=== PATIENT | female | born 1970 | race Two or more races ===

== ENCOUNTER 2022-10-14 09:24 | Outpatient (CLI) | payer BC, SELFPAY ==
--- NOTE | 2022-10-14 09:15 | CRLHL7_ITS ---
For Patients: As a result of the Century Cures Act, medical imaging exams and procedure reports are released immediately into your electronic medical record. You may view this report before your referring provider. If you have questions, please contact your health care provider. BILATERAL SCREENING MAMMOGRAM WITH COMPUTER-AIDED DETECTION TECHNIQUE: CC and MLO views were obtained. These mammographic images have been obtained using full-field digital technique. These mammographic images were interpreted with the benefit of computer-aided detection. COMPARISON FILM: 07/30/21, 05/15/20, 04/28/19. FINDINGS: The breasts are heterogeneously dense, which may obscure small masses IMPRESSION: There is no radiographic evidence for malignancy. ASSESSMENT: BI-RADS Category 2: Benign RECOMMENDATION: Routine screening mammogram in 1 year. A lay language report of this examination will be provided to the patient. Alejandro New M.D. Diagnostic Radiologist [email or web address] SOPHIA/melanie / be/Dictated by: Alejandro New MD @ 10/14/2022 11:47:00 AM (Electronically Signed)
== END 2022-10-14 09:25 | disposition home or self-care (01) ==
LOC: MAMMO 09:25
PROVIDERS: PCP Family Medicine; Visit Provider Physician Assistant
DX: Z12.31 Encounter for screening mammogram for malignant neoplasm of breast (principal); R92.2 Inconclusive mammogram
CPT/HCPCS: 77067

== ENCOUNTER 2023-09-24 07:55 | Outpatient (CLI) | payer MEDICAID, SELFPAY ==
--- NOTE | 2023-09-24 09:44 | W.ANESCHARGE ---
Anesthesia Charges Start Date/Time Anesthesia Start Date: 09/24/23 Anesthesia Start Time: 09:10 Stop Date/Time Anesthesia Stop Date: 09/24/23 Anesthesia Stop Time: 09:39
== END 2023-09-24 07:56 | disposition home or self-care (01) ==
PROVIDERS: PCP Physician Assistant Medical; Visit Provider Internal Medicine
DX: Z12.11 Encounter for screening for malignant neoplasm of colon (principal); K63.5 Polyp of colon; K57.30 Diverticulosis of large intestine without perforation or abscess without bleeding
CPT/HCPCS: 00811; 45380; 88305; J2704

== ENCOUNTER 2023-10-13 13:00 | Outpatient (RCR) | payer OTHER, BC, SELFPAY ==
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
== END 2023-10-19 10:59 | disposition home or self-care (01) ==
PROVIDERS: PCP Physician Assistant Medical; Visit Provider Family Medicine
DX: M25.511 Pain in right shoulder (principal); M89.8X1 Other specified disorders of bone, shoulder; R29.898 Other symptoms and signs involving the musculoskeletal system; Z74.09 Other reduced mobility; Z51.89 Encounter for other specified aftercare
CPT/HCPCS: 97110; 97140; 97161; 97535

== ENCOUNTER 2024-04-19 10:33 | Outpatient (CLI) | payer BC, SELFPAY ==
--- NOTE | 2024-04-19 11:00 | CRLHL7_ITS ---
For Patients: As a result of the Century Cures Act, medical imaging exams and procedure reports are released immediately into your electronic medical record. You may view this report before your referring provider. If you have questions, please contact your health care provider. INDICATION: Disease of the salivary gland, left parotid gland. COMPARISON: None. TECHNIQUE: CT soft tissue neck with IV contrast. Isovue 370, 86 cc. FINDINGS: Mild asymmetric enlargement of the left parotid gland. There is a underlying subtle ovoid min intra parotid mass measuring approximately 1.6 x 1.5 x 2.1 cm (series 3, image 33; series 5, image 67) with a thin peripheral margin of fat density. There is however no significant enhancement. No inflammation of the remainder of the left parotid gland. No intraglandular ductal dilatation. No obstructing sialolith. Normal right parotid gland. Normal bilateral submandibular glands. Low attenuation nodularity of the thyroid lobes. This may be better evaluated with ultrasound. Scattered small normal-sized cervical lymph nodes. No supraclavicular superior mediastinal adenopathy. Nasopharynx and oropharynx are clear. No inflammation within the paravertebral fat pads are Rich reveal space. Normal thickness of the epiglottis. Normal glottis with symmetric vocal cords. Lung apices are clear. Normal alignment of cervical spine. Cervical spondylosis. No prevertebral soft tissue swelling. Visualized paranasal sinuses and mastoid air cells are clear. IMPRESSION: 1. Nonenhancing subtle left intraparotid mass. No surrounding inflammatory change. Finding is indeterminate and differential considerations are broad include Warthin`s tumor or salivary gland malignancy. Recommend follow-up with MRI without and with IV gadolinium for further evaluation. 2. Low-attenuation nodularity of the thyroid gland. This may be better evaluated with ultrasound. 3. No adenopathy. 4. Normal deep soft tissues of the neck. 5. Cervical spondylosis Please note that all CT scans at this facility use dose modulation, iterative reconstruction, and/or weight-based dosing when appropriate to reduce radiation dose to as low as reasonably achievable. Dictated by Nikita Rios MD @ 04/19/2024 3:24:37 PM (Electronically Signed)
== END 2024-04-19 10:34 | disposition home or self-care (01) ==
PROVIDERS: PCP Physician Assistant Medical; Visit Provider Physician Assistant Medical
DX: K11.9 Disease of salivary gland, unspecified (principal); R22.1 Localized swelling, mass and lump, neck; M47.892 Other spondylosis, cervical region
CPT/HCPCS: 70491; Q9967

== ENCOUNTER 2024-05-17 13:00 | Outpatient (CLI) | payer BC, SELFPAY ==
--- NOTE | 2024-05-17 13:00 | CRLHL7_ITS ---
For Patients: As a result of the Century Cures Act, medical imaging exams and procedure reports are released immediately into your electronic medical record. You may view this report before your referring provider. If you have questions, please contact your health care provider. INDICATION: Thyroid nodule COMPARISON: CT neck 04/19/2024 TECHNIQUE: Burgos scale and color Doppler images were acquired of the thyroid gland. FINDINGS: Isthmus measures 4 millimeters. Solid and cystic nodule inferior pole left thyroid lobe measures 11 x 10 x 14 millimeters, TR 3. Cystic nodule with internal debris inferior pole left thyroid lobe measures 9 x 8 x 10 millimeters, TR 2. Solid and cystic nodule inferior pole right thyroid lobe measures 13 x 8 x 14 millimeters, TR 3. The right lobe measures 6.3 x 1.9 x 2.6 cm and the left lobe measures 6.0 x 2.6 x 2.3 cm in size. Isthmus measures 4 millimeters. The color Doppler images demonstrate normal vascularity. There is no evidence of cervical lymphadenopathy or parathyroid mass. IMPRESSION: Benign bilateral thyroid nodules which do not require follow-up. Dictated by Alejandro New MD @ 05/18/2024 9:38:16 AM (Electronically Signed)
--- NOTE | 2024-05-17 13:45 | CRLHL7_ITS ---
For Patients: As a result of the Century Cures Act, medical imaging exams and procedure reports are released immediately into your electronic medical record. You may view this report before your referring provider. If you have questions, please contact your health care provider. INDICATION: Left intraparotid mass. COMPARISON: CT 04/19/2024. TECHNIQUE: Multiplanar T1, T2 with fat saturation and post gadolinium 2 weighted sequences of the face and soft tissues of neck. FINDINGS: Compared to the previous CT, there is a circumscribed T2 hyperintensity and heterogeneous enhancing intra glandular mass of the left parotid gland measures 2 x 1.6 cm (series 4, image 9 keen; series 9, image 19). No surrounding inflammatory change. No intraglandular ductal dilatation. Normal right parotid gland. Normal bilateral submandibular glands. No enlarged lymph nodes within the visualized neck. Normal deep soft tissues of the suprahyoid neck. Bilateral orbits are unremarkable. Normal appearing sella. Visualized paranasal sinuses and mastoid air cells are clear. IMPRESSION: 1. Compared to the previous CT, better seen is a circumscribed T2 hyperintense and heterogeneous enhancing mass of the left parotid gland. Differential considerations include a benign mixed tumor, Warthin`s tumor or low-grade salivary gland malignancy. 2. No adenopathy in the visualized neck. Dictated by Nikita Rios MD @ 05/18/2024 11:52:23 AM (Electronically Signed)
== END 2024-05-17 13:01 | disposition home or self-care (01) ==
PROVIDERS: PCP Physician Assistant Medical; Visit Provider Physician Assistant Medical
DX: E04.1 Nontoxic single thyroid nodule (principal); K11.9 Disease of salivary gland, unspecified
CPT/HCPCS: 70543; 76536; A9575

== ENCOUNTER 2024-07-19 09:04 | Outpatient (CLI) | payer BC, SELFPAY ==
--- NOTE | 2024-07-19 09:15 | CRLHL7_ITS ---
For Patients: As a result of the Century Cures Act, medical imaging exams and procedure reports are released immediately into your electronic medical record. You may view this report before your referring provider. If you have questions, please contact your health care provider. BILATERAL SCREENING MAMMOGRAM WITH COMPUTER-AIDED DETECTION AND TOMOSYNTHESIS TECHNIQUE: CC and MLO views were obtained. These mammographic images have been obtained using full-field digital technique. These mammographic images were interpreted with the benefit of computer-aided detection. Breast Tomosynthesis was used in this interpretation. COMPARISON FILM: 10/14/22, 07/30/21, 05/15/20. FINDINGS: The breasts are heterogeneously dense, which may obscure small masses. IMPRESSION: There is no radiographic evidence for malignancy. ASSESSMENT: BI-RADS Category 2: Benign RECOMMENDATION: Routine screening mammogram in 1 year. A lay language report of this examination will be provided to the patient. Alejandro New M.D. Diagnostic Radiologist [email or web address] SP/Dictated by: Alejandro New MD @ 07/19/2024 10:24:00 AM (Electronically Signed)
== END 2024-07-19 09:05 | disposition home or self-care (01) ==
LOC: MAMMO 09:06
PROVIDERS: PCP Physician Assistant Medical; Visit Provider Physician Assistant Medical
DX: Z12.31 Encounter for screening mammogram for malignant neoplasm of breast (principal); R92.333 Mammographic heterogeneous density, bilateral breasts
CPT/HCPCS: 77063; 77067

== ENCOUNTER 2025-05-20 09:40 | Outpatient (CLI) | payer BC, SELFPAY | END 2025-05-20 09:41 | disposition home or self-care (01) | PROVIDERS: PCP Physician Assistant Medical; Visit Provider Nurse Practitioner Family | DX: S61.233A Puncture wound without foreign body of left middle finger without damage to nail, initial encounter (principal); W46.1XXA Contact with contaminated hypodermic needle, initial encounter; Y99.0 Civilian activity done for income or pay | CPT/HCPCS: 86703; 86705; 86706; 86803; 87340 ==

== ENCOUNTER 2025-07-05 09:18 | Outpatient (CLI) | payer OTHER, BC, SELFPAY | END 2025-07-05 09:19 | disposition home or self-care (01) | PROVIDERS: PCP Physician Assistant Medical; Visit Provider Nurse Practitioner Family | DX: S61.233A Puncture wound without foreign body of left middle finger without damage to nail, initial encounter (principal); W46.1XXA Contact with contaminated hypodermic needle, initial encounter; Z11.4 Encounter for screening for human immunodeficiency virus [HIV]; Z11.59 Encounter for screening for other viral diseases; Y99.0 Civilian activity done for income or pay | CPT/HCPCS: 86703; 86705; 86706; 86803; 87340 ==

== ENCOUNTER 2025-07-31 08:28 | Outpatient (CLI) | payer BC, SELFPAY ==
--- NOTE | 2025-07-31 09:15 | CRLHL7_ITS ---
For Patients: As a result of the Century Cures Act, medical imaging exams and procedure reports are released immediately into your electronic medical record. You may view this report before your referring provider. If you have questions, please contact your health care provider. INDICATION: BILATERAL SCREENING MAMMOGRAM, ASYMPTOMATIC 55 Y/O FEMALE COMPARISON: 07/19/2024, 10/14/2022, 07/30/2021 TECHNIQUE: Digital mammogram in CC and MLO projections including computer-aided detection (CAD) and tomosynthesis. BREAST COMPOSITION: There are scattered areas of fibroglandular density. FINDINGS: No suspicious findings. ASSESSMENT: BI-RADS 1 Negative RECOMMENDATION: Annual screening mammogram. A lay language report of this examination will be provided to the patient. Dictated by: Alejandro New MD @ 07/31/2025 09:35:09 (Electronically Signed)
== END 2025-07-31 08:29 | disposition home or self-care (01) ==
LOC: MAMMO 08:28
PROVIDERS: PCP Physician Assistant Medical; Visit Provider Physician Assistant Medical
DX: Z12.31 Encounter for screening mammogram for malignant neoplasm of breast (principal)
CPT/HCPCS: 77063; 77067